=== PATIENT | female | born 1965 | race Two or more races ===

== ENCOUNTER 2019-06-10 00:02 | Emergency (ER) | payer SELFPAY ==
[2019-06-10 00:06] VITALS: BP 127/76
--- NOTE | 2019-06-10 01:43 | NUR ---
Malia PEREZ contacted per their request due to pt dc.
== END 2019-06-10 02:10 | disposition home or self-care (01) ==
LOC: ED 00:30
DX: S00.12XA Contusion of left eyelid and periocular area, initial encounter (principal); S00.83XA Contusion of other part of head, initial encounter; E11.9 Type 2 diabetes mellitus without complications; Y04.0XXA Assault by unarmed brawl or fight, initial encounter; Y93.89 Activity, other specified; Y92.009 Unspecified place in unspecified non-institutional (private) residence as the place of occurrence of the external cause; Y99.8 Other external cause status
CPT/HCPCS: 70450; 70486; 99285

== ENCOUNTER 2020-10-25 01:58 | Emergency (ER) | payer OTHER ==
[~2020-10-25] VITALS: Ht 167.6 cm; Wt 68.1 kg
[2020-10-25] MEDS ORDERED: DIPH,PERTUSS(ACELL),TET VAC/PF 0.5 ML IM-VACC ONE ×2 (02:22→02:30)
[2020-10-25] MEDS ORDERED: LIDOCAINE 1%, 10ML INFIL ONE (02:30)
[2020-10-25] MEDS ORDERED: LIDOCAINE-MPF 1%, 2ML INFIL ONE (02:30)
[2020-10-25] MEDS ORDERED: LIDOCAINE-MPF 1%, 5ML ONE (02:35)
[2020-10-25 02:44] LABS: BASOPHILS % (AUTO) 0 % (0-1); EOSINOPHILS % (AUTO) 1 % (1-7); LYMPHOCYTES % (AUTO) 26 % (22-44); MEAN CORPUSCULAR HEMOGLOBIN 30.2 pg (27.0-34.8); MEAN CORPUSCULAR HGB CONC 33.9 g/dL (32.4-35.8); MEAN PLATELET VOLUME 7.8 fL (7.4-10.4); MONOCYTES % (AUTO) 6 % (2-9); NEUTROPHILS % (AUTO) 66 % (42-75); PLATELET COUNT 260 x10^3/uL (130-400); RED BLOOD COUNT 4.54 x10^6/uL (3.82-5.3); RED CELL DISTRIBUTION WIDTH 12.5 % (9.6-15.2)
[2020-10-25 02:50] LABS: ALBUMIN 3.3 g/dL (3.4-5.0); ANION GAP 11 mmol/L (5-15); CALCIUM 7.9 mg/dL (8.5-10.1); CHLORIDE 109 mmol/L (98-107)
--- NOTE | 2020-10-25 03:09 | NUR ---
PROVIDER AT BEDSIDE.
[2020-10-25] MEDS ORDERED: BACITRACIN ZINC OINT 500U/GM, 0.9 GM ONE (03:16)
[2020-10-25 03:20] LABS: SALICYLATE LEVEL < 1.7 mg/dL (2.8-20.0)
--- NOTE | 2020-10-25 04:53 | NUR ---
PT AMBULATED TO RESTROOM WITH MINIMAL ASSISTANCE. TOLERATED WELL.
[2020-10-25] MEDS ORDERED: SODIUM CHLORIDE FLUSH 10ML SYR IVF ONE (05:00)
[2020-10-25] MEDS ORDERED: SODIUM CHLORIDE 0.9% 1,000ML IVBOLUS ONE (05:00)
--- NOTE | 2020-10-25 06:52 | NUR ---
RECEIVED REPORT FROM [facility], PLAN OF CARE DISCUSSED.
--- NOTE | 2020-10-25 07:35 | NUR ---
PT STATES SHE IS SUICIDAL, INCREASE EMOTIONAL SUPPORT GIVEN, DISCUSSED WITH DR. PONCE
--- NOTE | 2020-10-25 08:49 | NUR ---
MEAL PROVIDED, PT REMAINS CALM AND COOPERATIVE
[2020-10-25] MEDS ORDERED: INSULIN REGULAR 100 UNITS/ML, 3ML VIAL SQ-INSULIN ONE (09:30)
--- NOTE | 2020-10-25 10:03 | NUR ---
REPORT TO [facility], PLAN OF CARE DISCUSSED
[2020-10-25] MEDS ORDERED: INSULIN SINGLE DOSE, ER ONE (10:06)
--- NOTE | 2020-10-25 10:10 | NUR ---
REPORT RECEIVED, CARE ASSUMED. PT MEDICATED ORDERED. PT TO BR, GAIT STEADY. PT ABLE TO PROVIDE URINE SPECIMAN. PT PROVIDED PO FLUIDS. PT UPDATED ON POC, IE: NIPPLE MAKER TO BE LATER TO EVAL PT. PT CO-OPERATIVE WITH CARE. PT IN SECURE ROOM WITH SITTER AT DOOR.
[2020-10-25 10:48] LABS: AMPHETAMINE SCREEN, URINE Negative (Negative); BARBITURATE SCREEN, URINE Negative (Negative); BENZODIAZEPINE SCREEN, URINE Negative (Negative); CANNABINOID SCREEN, URINE Negative (Negative); COCAINE SCREEN, URINE Negative (Negative); METHADONE SCREEN, URINE Negative (Negative); OPIATE SCREEN, URINE Negative (Negative)
--- NOTE | 2020-10-25 11:12 | NUR ---
PT MOSTLY SLEEPING IN SECURE ROOM. SITTER AT DOOR. COOPERATIVE WITH CARE. AWAITING FURTHER EVAL.
[2020-10-25] MEDS ORDERED: INSU100V13 SC (12:34)
[2020-10-25] MEDS ORDERED: CANA100T PO (12:34)
[2020-10-25] MEDS ORDERED: METF500T17 PO (12:34)
--- NOTE | 2020-10-25 12:35 | NUR ---
DR PONCE NOTIFIED OF PT BS. HOME MEDS OBTAINED. PT UNSURE OF INVOKANA DOSE. PT USE [facility] FOR MEDICATIONS. PT CONT DOZING INTERMITTENTLY, AROUSES EASILY. PT PROVIDED WITH MEAL TRAY, PO FLUIDS. NO OTHER NEEDS EXPRESSED AT THIS TIME. CONT IN SECURE ROOM WITH SITTER AT DOOR.
[2020-10-25 14:27] VITALS: BP 130/84
[2020-10-25] MEDS ORDERED: metFORMIN 500 MG TABLET PO SCH (17:00)
== END 2020-10-25 14:44 | disposition home or self-care (01) ==
LOC: ED 05:39
DX: S51.812A Laceration without foreign body of left forearm, initial encounter (principal); F10.129 Alcohol abuse with intoxication, unspecified; R45.851 Suicidal ideations; E11.65 Type 2 diabetes mellitus with hyperglycemia; Z72.9 Problem related to lifestyle, unspecified; X58.XXXA Exposure to other specified factors, initial encounter; Y93.89 Activity, other specified; Y92.89 Other specified places as the place of occurrence of the external cause; Y99.8 Other external cause status; Y90.0 Blood alcohol level of less than 20 mg/100 ml
CPT/HCPCS: 12001; 36415; 80048; 80299; 80307; 80320; 80329; 82040; 82962; 85025; 90471; 90715; 96360; 96361; 99283; J1815; J3490; J7030; G0480

== ENCOUNTER 2020-11-03 12:13 | Emergency (ER) | payer OTHER ==
[~2020-11-03] VITALS: Ht 157.5 cm; Wt 64.5 kg
[~2020-11-03 12:13] MED LIST: CANA100T PO; INSU100V13 SC; METF500T17 PO
[2020-11-03 12:27] VITALS: BP 121/73
[2020-11-03] MEDS ORDERED: BACITRACIN ZINC OINT 500U/GM, 0.9 GM ONE (12:35)
== END 2020-11-03 12:46 | disposition home or self-care (01) ==
LOC: ED 12:16
DX: S51.012D Laceration without foreign body of left elbow, subsequent encounter (principal); L03.114 Cellulitis of left upper limb; X58.XXXD Exposure to other specified factors, subsequent encounter
CPT/HCPCS: 99283